=== PATIENT | male | born 1965 | race Caucasian/White ===

== ENCOUNTER 2018-05-16 12:28 | Inpatient (IN) ==
[2018-05-17] MEDS ORDERED: Acetaminophen 325 MG TABLET PO PRN (18:41)
[2018-05-17] MEDS: *HR* OxyCODONE Immed Rel 5 MG TABLET PO PRN (18:42)
[2018-05-17] MEDS ORDERED: Acetaminophen 325 MG TABLET PO SCH (20:00)
[2018-05-17] MEDS: Albuterol 2.5 MG/3 ML NEBULIZER IH SCH (22:27)
[2018-05-17] MEDS: Melatonin 3 MG TABLET PO SCH (22:27)
[2018-05-17] MEDS: *HR* Enoxaparin 40 MG/0.4 ML SYRINGE SQ SCH (22:27)
[2018-05-18] MEDS: *HR* OxyCODONE Immed Rel 5 MG TABLET PO PRN ×3 (00:48→15:30)
[2018-05-18 05:34] LABS: Basophils # 0.1 K/mcL (0.0-0.2); Basophils % 0.7 %; Eosinophils # 0.2 K/mcL (0.0-0.6); Eosinophils % 2.1 %; Hematocrit 40.3 % (37.5-50.1); Hemoglobin 13.8 g/dL (12.9-16.9); Immature Granulocytes % 0.9 % (0-4); Lymphocytes # 2.1 K/mcL (0.6-4.6); Mean Corpuscular HGB Conc 34.2 g/dL (31.6-35.5); Mean Corpuscular Hemoglobin 29.7 pg (28.0-33.3); Mean Corpuscular Volume 86.9 fL (83.0-100.0); Mean Platelet Volume 10.7 fL (9.4-12.4); Monocytes # 0.7 K/mcL (0.0-1.3); Neutrophils # 5.1 K/mcL (1.6-8.9); Platelet Count 358 K/mcL (140-400); Red Blood Count 4.64 M/mcL (4.19-5.50); Red Cell Distribution Width 13.6 % (11.5-14.5); Segmented Neutrophils % 62.3 %
[2018-05-18] MEDS: Albuterol 2.5 MG/3 ML NEBULIZER IH SCH ×2 (05:40→10:57)
[2018-05-18] MEDS: *HR* Enoxaparin 40 MG/0.4 ML SYRINGE SQ SCH (05:40)
[2018-05-18 05:55] LABS: Alanine Aminotransferase 43 Units/L (7-52); Albumin 3.4 g/dL (3.5-5.7); Albumin/Globulin Ratio 1.4 (1.1-2.2); Alkaline Phosphatase 65 Units/L (34-104); Aspartate Amino Transferase 17 Units/L (13-39); BUN/Creatinine Ratio 16 (6-26); Bilirubin,Total 0.5 mg/dL (0.3-1.0); Blood Urea Nitrogen 12 mg/dL (6-20); Calcium 8.8 mg/dL (8.6-10.3); Carbon Dioxide 27 mEq/L (23-29); Chloride 99 mEq/L (98-107); Globulin 2.5 g/dL (2.4-3.5); Glucose 90 mg/dL (70-105); Osmolality,Calculated 277 (280-300); Potassium 3.5 mEq/L (3.5-5.1); Sodium 134 mEq/L (136-145); Total Protein 5.9 g/dL (6.4-8.9); eGFR For Non-African Americans > 60 (> 60)
[2018-05-18] MEDS ORDERED: Albuterol 2.5 MG/3 ML NEBULIZER IH PRN (11:05)
--- NOTE | 2018-05-18 11:58 | Internal Med History&Physical ---
Addendum entered and electronically signed by Wolf Montilla MD 05/23/18 12:59: Upon review, I see that I neglected to mention that the patient had an umbilical hernia. This is rather large, being about 10 or 12 cm x 4 cm, mainly at the inferior aspect of the umbilicus. This is easily reducible, spontaneously. It is not noticeable unless the patient is upright. Addendum entered and electronically signed by Wolf Montilla MD 05/18/18 12:12: I have personally performed a face to face evaluation on this patient. I have reviewed and agree with the care plan. History and Exam by me shows: Patient with stroke on the or march. He was in his usual state of health and plan to go hunting for the second in a row. He could not speak, could not move his right side and was noted to have visual defects. He has improved in terms of speech, swallowing, motor strength but still has visual changes and double vision. His subarachnoid hemorrhage, as a complication of a stroke, was apparently treated with 2 coils. He was markedly hypertensive upon admission to [facility] and this was controlled with medication. He is otherwise been medically stable, after the procedures, as noted. Admits to double vision is noted and notes that his eye is weak on the right. He has full dentures, upper and lower plate. Patient has no complaint of chest discomfort, dyspnea, orthopnea, breathing problems, palpitations, nausea or vomiting, constipation or diarrhea, other changes in bowel habits, heartburn, difficulty with urination, kidney problems or kidney stones, fevers chills or sweats, rash or itching, seizures, headache or lightheadedness, heat or cold intolerance, blood problems or anemia, or other new complaints, except as mentioned above. Review of systems is otherwise negative. Examination: (Except as mentioned above): General: In no apparent distress, alert and oriented 3. Head: Atraumatic and normocephalic. Eyes: Extraocular muscles are remarkable for right esotropia, pupils equal round and reactive to light and accommodation. He occasionally demonstrates gaze divergence on the right. Sclerae anicteric. Ears: External ears are normal to inspection and hearing is grossly normal. Nose: Patent without lesion noted. Mouth: No intraoral lesions seen. Dentition is unremarkable. Neck: Supple with trachea midline. There is no thyromegaly or adenopathy and carotids are 2+ without bruit heard. Respiratory: No use of accessory muscles. Lungs are clear throughout. Normal airflow. Cardiovascular: Regular rate and rhythm without murmur appreciated. Abdomen: Bowel sounds are normal. No hepatosplenomegaly masses or tenderness. Obese and therefore difficult to palpate deeply. Extremities: No cyanosis clubbing or edema. Neurological: A and O 3. Cranial nerves II through XII are intact. No focal deficits and no abnormal movements or postures. Skin: Warm and non-diaphoretic with no lesions noted. Breasts, pelvic and rectal: Not examined. He will have therapy and assessment by physical therapy, occupational therapy, speech therapy, recreational therapy, physical medicine. We will watch his blood pressure and make sure that he has no fall, as possible. He is felt to be at fall risk and I told him this. I spoke with nursing about moving him closer to the nurses station. Apparently, patient has tried to get up and disable his bed alarm. Original Note: Date of Encounter: 05/18/18 Time of Encounter: 11:55 Assessment and Plan (1) SAH (subarachnoid hemorrhage) Current visit: Yes Status: Acute Patient was admitted to this facility for rehabilitation due to deconditioning secondary to his subarachnoid hemorrhage. Patient experienced a subarachnoid hemorrhage on 05/02/18, and was transferred to [facility] for treatment. Patient experienced a coiling of aneurysm and had a uneventful recovery. On exam patient shows no motor deficit but does show visual deficit with eyes being deconjugated and complaints of diplopia. Patient states some difficulty with ambulation due to his visual deficits. Patient had elevated blood pressure on admission to [facility], but his blood pressure has been stable since his admission at this facility. Patient denies any discomforts or shortness of breath. Patient states no prior medical issues. We will continue with physical therapy and s upportive care. (2) HTN (hypertension) Current visit: Yes Status: Acute No acute issues. Patient experienced a hypertensive emergency on day of admission for his subarachnoid hemorrhage. Patient's blood pressure is been stable since his admission to this facility. We will continue with current medications. Qualifiers: Hypertension type: essential hypertension Qualified Code(s): I10 - Essential (primary) hypertension (3) Unsteady gait Current visit: Yes Status: Acute Patient with unsteady gait secondary to his visual deficits. Patient noted to ambulate with minimal assistance and the use of a wheeled walker. We will continue with PT/OT and supportive care. Internal Medicine - H&P: HPI Chief complaint: SAH Admitted From: Home Plans for Post Hospital Care: Home History of present illness: Mr. Blanco is a 52 year old male, who was transferred from [facility] on 05/02/18, after being treated for a subarachnoid hemorrhage. Per medical records patient had a coiling of a aneurysm and showed a uneventful recovery. Patient was transferred to this facility for further rehabilitation due to deconditioning. Patient noted to have some difficulty with vision to his right thigh, but otherwise shows no notable motor deficits. He denies any current discomforts or dyspnea. Patient states he had no prior medical history and was on no home medications prior to this admission. Past Med Surg Social Fam HX - Past Medical History Medical history: hypertension Additional medical history: brain aneurysm Psychiatric history: no psych history - Past Surgical History Additional surgical history: 2018- ruptured brain aneurysm - Social History Smoking Status: Former smoker Alcohol use: none Drug use: marijuana - Family History Father Living Status: Cause of : cva Internal Medicine - H&P: Meds Acetaminophen [Tylenol] 650 mg PO Q4HR 05/17/18 [History] Albuterol Neb [Proventil Neb] 2.5 mg IH Q6HR 05/17/18 [History] Docusate [Colace] 100 mg PO BID 05/17/18 [History] Lisinopril [Zestril] 5 mg PO DAILY 05/17/18 [History] Melatonin [Melatin] 3 mg PO HS 05/17/18 [History] OxyCODONE Immed Rel [Roxicodone 5 MG] 5 mg PO Q6HR PRN 05/17/18 [History] Quetiapine Fumarate [Seroquel] 50 mg PO HS PRN 05/17/18 [History] Allergy/AdvReac Type Severity Reaction Status Date / Time No Known Allergies Allergy Verified 05/02/18 09:02 All Systems PM: A 10-system review of systems was performed and is negative for pertinent findings except as documented above in the HPI. - Constitutional Constitutional: as per HPI, no chills, no fever(s), no night sweats - EENT Eyes: as per HPI, no change in vision, no discharge, no pain, no photophobia Ears: no ear discharge, no ear pain, no tinnitus Nose, mouth and throat: as per HPI, no dysphagia, no nasal discharge, no neck pain, no sore throat - Cardiovascular Cardiovascular ROS IM: as per HPI, no chest pain, no diaphoresis, no dyspnea, no lightheadedness, no palpitations, no syncope - Respiratory Respiratory: as per HPI, no cough, no dyspnea, no wheezing, no excessive phlegm production - Gastrointestinal Gastrointestinal: as per HPI, no abdominal pain, no diarrhea, no hematemesis, no hematochezia, no melena, no nausea, no vomiting - Musculoskeletal Musculoskeletal ROS IM: no numbness, no tingling - Integumentary Integumentary IM: no rash, no unusual bruising - Neurological Neurological ROS: no confusion, no convulsions, no focal weakness, no numbness, no tingling, no tremor(s) - Hematologic/Lymphatic Hematologic/Lymphatic: no easy bruising - Constitutional Vitals: Temp Pulse Resp BP Pulse Ox 99.3 F 75 16 135/88 91 05/18/18 08:00 05/18/18 08:00 05/18/18 08:00 05/18/18 08:00 05/18/18 08:00 General appearance: Present: A&O X 3 - Head Head exam: Present: atraumatic, normocephalic - Eye Eye exam: Present: PERRL, conjuntiva pink, sclera anicteric Pupils: Present: PERRL Additional comments: Patient is with noted to be disconjugate. Patient complaints of diplopia. Denies any visual deficit to either eye. - Neck Neck exam general surgery: Present: supple, trachea midline. Absent: lymphadenopathy - Respiratory Respiratory exam: Present: CTAB. Absent: accessory muscle use, rales, rhonchi, wheezes - Cardiovascular Cardiovascular exam: Present: RRR, +S1, +S2. Absent: diastolic murmur, gallop, rubs, systolic murmur - GI/Abdominal GI/Abdominal exam: Present: normal bowel sounds, soft, no peritoneal signs. Absent: distended, tenderness - Extremities Exam Extremities exam: Present: warm, radial pulses palpable and symmetrical. Absent: calf tenderness, cyanotic, pedal edema - Neurological Exam Neurological exam: Present: CN II-XII intact, oriented X3, no focal deficits. Absent: pronater drift, facial droop, speech deficit Additional comments: No focal motor deficits noted on exam. Unsteady gait, likely due to diplopia. - Skin Skin exam: Present: dry, intact Internal Med - H&P Results - Labs CBC & Chem 7: 05/18/18 05:15 05/18/18 05:15 Labs: Short CBC 05/18/18 Range/Units 05:15 WBC 8.1 (4.3-11.1) K/mcL Hgb 13.8 (12.9-16.9) g/dL Hct 40.3 (37.5-50.1) % Plt Count 358 (140-400) K/mcL Neutrophils # 5.1 (1.6-8.9) K/mcL BMP 05/18/18 05:15 Sodium 134 L Potassium 3.5 Chloride 99 Carbon Dioxide 27 BUN 12 Creatinine 0.75 Glucose 90 Calcium 8.8 Liver Function 05/18/18 Range/Units 05:15 Total Bilirubin 0.5 (0.3-1.0) mg/dL AST 17 (13-39) Units/L ALT 43 (7-52) Units/L Alkaline Phosphatase 65 (34-104) Units/L Albumin 3.4 L (3.5-5.7) g/dL
[2018-05-18 18:29] LABS: Bilirubin,Urine Negative (Negative); Blood,Urine Moderate (Negative); Clarity,Urine Clear (Clear); Color,Urine Yellow (Yellow); Glucose,Urine (UA) Normal (Normal); Ketones,Urine Negative (Negative); Leukocyte Esterase,Urine Negative (Negative); Nitrite,Urine Negative (Negative); Protein,Urine Negative (Neg-Trace); Urobilinogen,Urine Normal (Normal)
[2018-05-18 18:49] LABS: Squamous Epithelial Cell,Urine Few per lpf (None-Few)
[2018-05-18 18:51] LABS: Bacteria,Urine Few per hpf (None-Few); WBC,Urine 0-3 per hpf (0-3)
[2018-05-18] MEDS: Melatonin 3 MG TABLET PO SCH (20:16)
[2018-05-19] MEDS: *HR* Enoxaparin 40 MG/0.4 ML SYRINGE SQ SCH (05:32)
[2018-05-19] MEDS: *HR* OxyCODONE Immed Rel 5 MG TABLET PO PRN ×2 (05:35→16:00)
--- NOTE | 2018-05-19 07:51 | Internal Med Progress Note ---
Addendum entered and electronically signed by Wolf Montilla MD 05/19/18 12:21: I have personally performed a face to face evaluation on this patient. I have r eviewed and agree with the care plan. History and Exam by me shows: As noted, the patient was originally to be on Nimotop for 3 weeks. However, this was discontinued when he was discharged from [facility]. We asked about neural ophthalmology follow-up and this will be arranged by nursing and/or his . The patient has been somewhat constipated but had a large bowel movement, last night. He is pleased with the results and feels better. The patient is pleased with his therapy and feels like he has done a lot and is advancing, well. He feels more steady on his feet and still admits to double vision but feels like this is getting better. Discussed care with other providers and/or nursing. Patient has no complaint of chest discomfort, dyspnea, orthopnea, palpitations, nausea or vomiting, constipation or diarrhea, other changes in bowel habits, difficulty with urination, rash or itching, or other new complaints, except as mentioned above. Review of systems is otherwise negative. Examination: (Except as mentioned above): General: In no apparent distress. Alert and oriented 3. Nondiaphoretic. He still has mild gaze divergence with right eye weakness. Head: Atraumatic and normocephalic. Respiratory: No use of accessory muscles. Lungs are clear throughout. Normal airflow. Cardiovascular: Regular rate and rhythm without murmur appreciated. Abdomen: Bowel sounds are normal. No hepatosplenomegaly mass or tenderness appreciated. Obese and therefore difficult to palpate deeply. Patient is examined upright in chair and this also limits exam. Extremities: No cyanosis clubbing or edema. Skin: Warm and non-diaphoretic with no new lesions noted. Original Note: Date of Encounter: 05/19/18 Time of Encounter: 07:48 - Assessment and plan (1) SAH (subarachnoid hemorrhage) Current Visit: Yes Status: Acute Assessment and plan: No acute issues. Patient denies any acute neurological deficits. Patient continues complaining of diplopia since his initial bleed. Eyes remained disconjugate gaze. No deficits noted on exam for muscle strength or sensation. We will continue with physical therapy which patient states is progressing well. Patient to continue follow-up with neurosurgery. We will evaluate if patient has follow-up with neural press smith helper. (2) HTN (hypertension) Current Visit: Yes Status: Acute Assessment and plan: Vital signs have remained stable. Patient has occasional systolic blood pressure in the 150s. Continue with current medications and monitor closely. Qualifiers: Hypertension type: essential hypertension Qualified Code(s): I10 - Essential (primary) hypertension (3) Unsteady gait Current Visit: Yes Status: Acute Assessment and plan: Patient continues to have unsteady gait, likely secondary to diplopia. We will continue to use of wheeled walker and assistance when ambulating. Patient has been progressing well with physical therapy. We will continue with current plan of care. - Time Spent With Patient less than 15 minutes - Subjective Interval history: Patient prophylaxis currently denies any discomforts or shortness of breath. Patient denies any acute neurological changes. Patient continues to complain of diplopia which he states has been unchanged since his discharge. - Constitutional Vitals: Temp Pulse Resp BP Pulse Ox 97.3 F L 76 16 159/96 97 05/18/18 19:00 05/18/18 19:00 05/18/18 19:00 05/18/18 19:00 05/18/18 19:00 General appearance: Present: A&O X 3 - Head Head exam: Present: atraumatic, normocephalic - Eye Eye exam: Present: PERRL, conjuntiva pink, sclera anicteric Pupils: Present: PERRL Additional comments: Eyes continue to be disconjugate with gaze. Patient with complaints of diplopia. No visual field loss noted on exam. - Neck Neck exam general surgery: Present: supple, trachea midline. Absent: lymphadenopathy - Respiratory Respiratory exam: Present: CTAB. Absent: accessory muscle use, rales, rhonchi, wheezes - Cardiovascular Cardiovascular exam: Present: RRR, +S1, +S2. Absent: diastolic murmur, gallop, rubs, systolic murmur - GI/Abdominal GI/Abdominal exam: Present: normal bowel sounds, soft, no peritoneal signs. Absent: distended, tenderness - Extremities Exam Extremities exam: Present: warm, radial pulses palpable and symmetrical. Absent: calf tenderness, cyanotic, pedal edema - Neurological Exam Neurological exam: Present: CN II-XII intact, oriented X3, no focal deficits. Absent: pronater drift, facial droop, speech deficit - Skin Skin exam: Present: dry, intact Internal Medicine: Result - Labs CBC & Chem 7: 05/18/18 05:15 05/18/18 05:15 Labs: Urine 05/18/18 Range/Units 18:20 Urine Color Yellow (Yellow) Urine Clarity Clear (Clear) Urine pH 6.0 (5.0-8.0) pH Units Ur Specific [place] 1.010 (1.010-1.025) Urine Protein Negative (Neg-Trace) mg/dL Urine Glucose (UA) Normal (Normal) mg/dL Consult Discharge Plan - Plan Referrals: NONE,PCP [Primary Care Provider] -
--- NOTE | 2018-05-19 09:03 | Event Note ---
Date of Encounter: 05/19/18 Time of Encounter: 09:01 Spoke with the neurosurgical nurse practitioner from the office of Dr. Galdamez, neurosurgeon who had taken care of Mr. Blanco. Confirmed that patient had his Nimotop discontinued at time of discharge from [facility]. Patient current status was discussed and he shows no signs of vasospasm during his stay at this facility. She also confirmed that patient was to be on low-dose Lovenox. Also, a request was made to have the contact the office of Dr. Galdamez to arrange a neuroophthalmology follow-up appointment. This was discussed with the patient and his nurse.
[2018-05-19] MEDS: Melatonin 3 MG TABLET PO SCH (19:57)
[2018-05-20] MEDS: *HR* OxyCODONE Immed Rel 5 MG TABLET PO PRN ×3 (03:02→22:45)
[2018-05-20] MEDS: *HR* Enoxaparin 40 MG/0.4 ML SYRINGE SQ SCH (05:35)
[2018-05-20 05:47] LABS: Hemoglobin 13.4 g/dL (12.9-16.9); Mean Corpuscular HGB Conc 33.5 g/dL (31.6-35.5); Mean Corpuscular Hemoglobin 29.7 pg (28.0-33.3); Mean Corpuscular Volume 88.7 fL (83.0-100.0); Platelet Count 390 K/mcL (140-400); Red Blood Count 4.51 M/mcL (4.19-5.50); Red Cell Distribution Width 13.5 % (11.5-14.5)
[2018-05-20 06:05] LABS: Alanine Aminotransferase 42 Units/L (7-52); Albumin 3.5 g/dL (3.5-5.7); Albumin/Globulin Ratio 1.5 (1.1-2.2); Alkaline Phosphatase 65 Units/L (34-104); Aspartate Amino Transferase 17 Units/L (13-39); BUN/Creatinine Ratio 15 (6-26); Bilirubin,Total 0.4 mg/dL (0.3-1.0); Blood Urea Nitrogen 13 mg/dL (6-20); Calcium 8.7 mg/dL (8.6-10.3); Carbon Dioxide 31 mEq/L (23-29); Chloride 102 mEq/L (98-107); Globulin 2.3 g/dL (2.4-3.5); Glucose 107 mg/dL (70-105); Osmolality,Calculated 285 (280-300); Sodium 137 mEq/L (136-145); Total Protein 5.8 g/dL (6.4-8.9); eGFR For Non-African Americans > 60 (> 60)
--- NOTE | 2018-05-20 10:25 | Internal Med Progress Note ---
Date of Encounter: 05/20/18 Time of Encounter: 10:23 - Assessment and plan (1) SAH (subarachnoid hemorrhage) Current Visit: Yes Status: Acute Assessment and plan: The patient continues to improve and participates well in therapy. However, he has a visual or general agnosia and is at fall risk, as I said upon his admission. We will continue to force his need for care, following rules, and he will be on a chair/bed a warm. We have moved him closer to the nurses station because of his risk. He seems to have insight into his agnosia and fall risk but this is an ongoing problem and will need to watch with therapies. He feels like he is proceeding well with therapy. He shows no evidence of injury, last evening. (2) HTN (hypertension) Current Visit: Yes Status: Acute Assessment and plan: This is marginally controlled. We will add clonidine as needed for elevations and may consider changing or adding additional medications, as necessary. Qualifiers: Hypertension type: essential hypertension Qualified Code(s): I10 - Essential (primary) hypertension - Subjective Interval history: Patient is without complaint. He is doing well and moving his bowels, etc. He still admits to double vision or blurred vision, at times. The nursing staff notes that patient slipped from his bed, witnessed by , without injury or without loss of consciousness, etc. This was apparently due to his non-compliance and occurred during a fire drill. He states that his "helps me wrong." He totally denies any injury. He asks about when he can go home and once go in the coming week. We discussed his instability, I briefly tried to explain to him about his visual and functional agnosia and fall risk and he accepts. Patient has no complaint of chest discomfort, dyspnea, orthopnea, palpitations, nausea or vomiting, constipation or diarrhea, other changes in bowel habits, difficulty with urination, rash or itching, or other new complaints, except as mentioned above. Review of systems is otherwise negative. I discussed management of her care with nursing staff. - Constitutional Vitals: Temp Pulse Resp BP Pulse Ox 98.4 F 76 18 168/90 97 05/20/18 07:00 05/20/18 07:00 05/20/18 07:00 05/20/18 07:00 05/19/18 19:33 Exam: Examination: (Except as mentioned above): General: In no apparent distress. Alert and oriented 3. Nondiaphoretic. Head: Atraumatic and normocephalic. Respiratory: No use of accessory muscles. Lungs are clear throughout. Normal airflow. Cardiovascular: Regular rate and rhythm without murmur appreciated. Abdomen: Bowel sounds are normal. No hepatosplenomegaly mass or tenderness appreciated. Obese and therefore difficult to palpate deeply. Patient is examined upright in chair and this also limits exam. Extremities: No cyanosis clubbing or edema. Skin: Warm and non-diaphoretic with no new lesions noted. Internal Medicine: Result - Labs CBC & Chem 7: 05/20/18 05:35 05/20/18 05:35 Labs: Short CBC 05/20/18 Range/Units 05:35 WBC 7.9 (4.3-11.1) K/mcL Hgb 13.4 (12.9-16.9) g/dL Hct 40.0 (37.5-50.1) % Plt Count 390 (140-400) K/mcL [facility] 05/20/18 05:35 Sodium 137 Potassium 4.0 Chloride 102 Carbon Dioxide 31 H BUN 13 Creatinine 0.85 Glucose 107 H Calcium 8.7 Liver Function 05/20/18 Range/Units 05:35 Total Bilirubin 0.4 (0.3-1.0) mg/dL AST 17 (13-39) Units/L ALT 42 (7-52) Units/L Alkaline Phosphatase 65 (34-104) Units/L Albumin 3.5 (3.5-5.7) g/dL Consult Discharge Plan - Plan Referrals: NONE,PCP [Primary Care Provider] -
[2018-05-20] MEDS: Melatonin 3 MG TABLET PO SCH (22:46)
[2018-05-21] MEDS: *HR* Enoxaparin 40 MG/0.4 ML SYRINGE SQ SCH (06:20)
--- NOTE | 2018-05-21 10:16 | Internal Med Progress Note ---
Addendum entered and electronically signed by Wolf Montilla MD 05/21/18 13:47: I have personally performed a face to face evaluation on this patient. I have r eviewed and agree with the care plan. History and Exam by me shows: Patient is doing well. He has no change and feels like he has had or stability, today. He is doing well and is having a pet visit in rehabilitation. He states his bowels are moving well. His lisinopril was increased slightly because of his elevated blood pressure but we will follow. Discussed care with other providers and/or nursing. Patient has no complaint of chest discomfort, dyspnea, orthopnea, palpitations, nausea or vomiting, constipation or diarrhea, other changes in bowel habits, difficulty with urination, rash or itching, or other new complaints, except as mentioned above. Review of systems is otherwise negative. Examination: (Except as mentioned above): General: In no apparent distress. Alert and oriented 3. Nondiaphoretic. Head: Atraumatic and normocephalic. Respiratory: No use of accessory muscles. Lungs are clear throughout. Normal airflow. Cardiovascular: Regular rate and rhythm without murmur appreciated. Abdomen: Bowel sounds are normal. No hepatosplenomegaly mass or tenderness appreciated. Obese and therefore difficult to palpate deeply. Patient is examined upright in chair and this also limits exam. Extremities: No cyanosis clubbing or edema. Skin: Warm and non-diaphoretic with no new lesions noted. Original Note: Date of Encounter: 05/21/18 Time of Encounter: 10:14 - Assessment and plan (1) SAH (subarachnoid hemorrhage) Current Visit: Yes Status: Acute Assessment and plan: No acute issues. Patient denies any acute neurological deficits. Patient continues complaining of diplopia since his initial bleed. Eyes remained disconjugate gaze. No deficits noted on exam for muscle strength or sensation. We will continue with physical therapy which patient states is progressing well. Patient to continue follow-up with neurosurgery. Patient reports that he has a follow-up appointment set for a neuroophthalmologist in the next few weeks. (2) HTN (hypertension) Current Visit: Yes Status: Acute Assessment and plan: Vital signs have remained stable. Patient continues to have multiple readings greater than 160. We will start when necessary clonidine for elevated blood pressure. We will increase current lisinopril to 10 mg daily. Qualifiers: Hypertension type: essential hypertension Qualified Code(s): I10 - Essential (primary) hypertension - Time Spent With Patient less than 15 minutes - Subjective Interval history: Patient prophylaxis currently denies any discomforts or shortness of breath. Patient denies any acute neurological changes. Patient continues to complain of diplopia which he states has been unchanged since his discharge. Patient states that his has made arrangements for him to follow-up with a joana roophthalmologist in the upcoming weeks. Nurse reports patient has had a recent fall out of bed, but patient denies any injuries. Patient stating wishes to go home soon. - Constitutional Vitals: Temp Pulse Resp BP Pulse Ox 98.0 F 80 16 161/117 97 05/21/18 08:00 05/21/18 08:00 05/21/18 08:00 05/21/18 08:00 05/20/18 20:00 General appearance: Present: A&O X 3, pleasant - Head Head exam: Present: atraumatic, normocephalic - Eye Eye exam: Present: PERRL, conjuntiva pink, sclera anicteric Pupils: Present: PERRL Additional comments: Disconjugate gaze. Complaints of diplopia. 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 - Neck Neck exam general surgery: Present: supple, trachea midline. Absent: lymphadenopathy - Respiratory Respiratory exam: Present: CTAB. Absent: accessory muscle use, rales, rhonchi, wheezes - Cardiovascular Cardiovascular exam: Present: RRR, +S1, +S2. Absent: diastolic murmur, gallop, rubs, systolic murmur - GI/Abdominal GI/Abdominal exam: Present: normal bowel sounds, soft, no peritoneal signs. Absent: distended, tenderness - Extremities Exam Extremities exam: Present: warm, radial pulses palpable and symmetrical. Absent: calf tenderness, cyanotic, pedal edema - Neurological Exam Neurological exam: Present: CN II-XII intact, oriented X3. Absent: pronater drift, facial droop, speech deficit Additional comments: Patient continues to show effects of third nerve palsy with disconjugate gaze and complaints of diplopia. No other focal neurological deficits noted. - Skin Skin exam: Present: dry, intact Internal Medicine: Result - Labs CBC & Chem 7: 05/20/18 05:35 05/20/18 05:35 Consult Discharge Plan - Plan Referrals: NONE,PCP [Primary Care Provider] -
[2018-05-21] MEDS: *HR* OxyCODONE Immed Rel 5 MG TABLET PO PRN ×2 (16:04→22:20)
[2018-05-21] MEDS: cloNIDine HCl 0.1 MG TABLET PO PRN (16:06)
[2018-05-21] MEDS: Melatonin 3 MG TABLET PO SCH (22:20)
[2018-05-22] MEDS: *HR* Enoxaparin 40 MG/0.4 ML SYRINGE SQ SCH (06:12)
[2018-05-22] MEDS: *HR* OxyCODONE Immed Rel 5 MG TABLET PO PRN ×2 (08:52→19:44)
--- NOTE | 2018-05-22 11:00 | Internal Med Progress Note ---
Addendum entered and electronically signed by Wolf Montilla MD 05/22/18 11:58: I have personally performed a face to face evaluation on this patient. I have r eviewed and agree with the care plan. History and Exam by me shows: Patient is without complaint. He feels like he is getting more stable with ambulation. However, therapies and nursing note impulse in this which persists. He wants to go home today. However, I told him that we will discuss with therapy staff and he would need at least a day or 2 of family education about home care before his discharge. Discuss his progress in team meeting, today. He states that he has moved his bowels and bladder is functioning well. He had some headache this morning. Nursing notes discrepancy which is 30-40 mmHg between the 2 arms. I have investigated trying to reach vascular surgery and radiology about the best evaluation that we have here. Discussed care with other providers and/or nursing. Patient has no complaint of chest discomfort, dyspnea, orthopnea, palpitations, nausea or vomiting, constipation or diarrhea, other changes in bowel habits, difficulty with urination, rash or itching, or other new complaints, except as mentioned above. Review of systems is otherwise negative. Examination: (Except as mentioned above): General: In no apparent distress. Alert and oriented 3. Nondiaphoretic. He still has gaze divergence. Head: Atraumatic and normocephalic. Respiratory: No use of accessory muscles. Lungs are clear throughout. Normal airflow. Cardiovascular: Regular rate and rhythm without murmur appreciated. Abdomen: Bowel sounds are normal. No hepatosplenomegaly mass or tenderness appreciated. Obese and therefore difficult to palpate deeply. Patient is examined upright in chair and this also limits exam. Extremities: No cyanosis clubbing or edema. Skin: Warm and non-diaphoretic with no new lesions noted. Original Note: Date of Encounter: 05/22/18 Time of Encounter: 10:58 - Assessment and plan (1) SAH (subarachnoid hemorrhage) Current Visit: Yes Status: Acute Assessment and plan: continue PT and OT. will follow progress. f/u with neurologist as scheduled. (2) HTN (hypertension) Current Visit: Yes Status: Acute Assessment and plan: controlled with current meds. lisinopril increased yesterday. monitor BP. Qualifiers: Hypertension type: essential hypertension Qualified Code(s): I10 - Es sential (primary) hypertension - Time Spent With Patient less than 15 minutes - Subjective Interval history: participating well with therapy. continues to be impulsive at times. c/o diplopia, scheduled to see neuro-opthamologist in a couple weeks. denies any new neuro deficits. maintaining appetite and hydration. bowels moving as normal. - Constitutional Vitals: Temp Pulse Resp BP Pulse Ox 97.4 F L 81 16 157/84 96 05/22/18 08:00 05/22/18 08:00 05/22/18 08:00 05/22/18 08:00 05/21/18 20:38 General appearance: Present: A&O X 3, pleasant, no acute distress, answers questions appropriately - Head Head exam: Present: atraumatic, normocephalic - Eye Eye exam: Present: PERRL, conjuntiva pink, sclera anicteric Pupils: Present: PERRL - Neck Neck exam general surgery: Present: supple, trachea midline. Absent: lymphadenopathy - Respiratory Respiratory exam: Present: CTAB. Absent: accessory muscle use, rales, rhonchi, wheezes - Cardiovascular Cardiovascular exam: Present: RRR, +S1, +S2. Absent: diastolic murmur, gallop, rubs, systolic murmur - GI/Abdominal GI/Abdominal exam: Present: normal bowel sounds, soft, no peritoneal signs. Absent: distended, tenderness - Extremities Exam Extremities exam: Present: warm, radial pulses palpable and symmetrical. Absent: calf tenderness, cyanotic, pedal edema - Neurological Exam Neurological exam: Present: CN II-XII intact, oriented X3, no focal deficits. Absent: pronater drift, facial droop, speech deficit - Skin Skin exam: Present: dry, intact Internal Medicine: Result - Labs CBC & Chem 7: 05/20/18 05:35 05/20/18 05:35 Consult Discharge Plan - Plan Referrals: NONE,PCP [Primary Care Provider] -
[2018-05-22] MEDS: Melatonin 3 MG TABLET PO SCH (19:44)
[2018-05-23] MEDS: *HR* Enoxaparin 40 MG/0.4 ML SYRINGE SQ SCH (06:15)
[2018-05-23] MEDS: *HR* OxyCODONE Immed Rel 5 MG TABLET PO PRN ×2 (08:08→20:00)
--- NOTE | 2018-05-23 11:32 | Internal Med Progress Note ---
Addendum entered and electronically signed by Wolf Montilla MD 05/23/18 12:56: I have personally performed a face to face evaluation on this patient. I have r eviewed and agree with the care plan. History and Exam by me shows: Patient is without issue. I reviewed his high blood pressure and there is discrepancy in blood pressure between arms. This included normal Dopplers waveforms of bilateral upper extremities, yesterday. His attributes this to stress but I told her that I think that this is likely not related to stress and needs to be followed with their family physician. He denies problems, feels that he is stable with walking and look forward to going home in 3 or 4 days. Discussed care with other providers and/or nursing. Patient has no complaint of chest discomfort, dyspnea, orthopnea, palpitations, nausea or vomiting, constipation or diarrhea, other changes in bowel habits, difficulty with urination, rash or itching, or other new complaints, except as mentioned above. Review of systems is otherwise negative. Examination: (Except as mentioned above): General: In no apparent distress. Alert and oriented 3. Nondiaphoretic. Head: Atraumatic and normocephalic. Respiratory: No use of accessory muscles. Lungs are clear throughout. Normal airflow. Cardiovascular: Regular rate and rhythm without murmur appreciated. Abdomen: Bowel sounds are normal. No hepatosplenomegaly mass or tenderness appreciated. Obese and therefore difficult to palpate deeply. Still with hernia, as before. Patient is examined upright in chair and this also limits exam. Extremities: No cyanosis clubbing or edema. Skin: Warm and non-diaphoretic with no new lesions noted. Original Note: Date of Encounter: 05/23/18 Time of Encounter: 11:31 - Assessment and plan (1) SAH (subarachnoid hemorrhage) Current Visit: Yes Status: Acute Assessment and plan: continue PT and OT. will follow progress. f/u with neurologist as scheduled. (2) HTN (hypertension) Current Visit: Yes Status: Acute Assessment and plan: controlled with current meds. lisinopril increased yesterday. monitor BP. Qualifiers: Hypertension type: essential hypertension Qualified Code(s): I10 - Essential (primary) hypertension - Time Spent With Patient less than 15 minutes - Subjective Interval history: participating well with therapy. ambulating with CGA in hallway. continues to be impulsive at times. c/o diplopia, scheduled to see neuro-opthamologist in a couple weeks. denies any new neuro deficits. maintaining appetite and hydration. bowels moving as normal. - Constitutional Vitals: Temp Pulse Resp BP Pulse Ox 98.1 F 70 14 157/99 96 05/23/18 05:42 05/23/18 05:42 05/23/18 05:42 05/23/18 05:42 05/23/18 05:42 General appearance: Present: A&O X 3, pleasant, no acute distress, answers questions appropriately - Head Head exam: Present: atraumatic, normocephalic - Eye Eye exam: Present: PERRL, conjuntiva pink, sclera anicteric Pupils: Present: PERRL - Neck Neck exam general surgery: Present: supple, trachea midline. Absent: lymphadenopathy - Respiratory Respiratory exam: Present: CTAB. Absent: accessory muscle use, rales, rhonchi, wheezes - Cardiovascular Cardiovascular exam: Present: RRR, +S1, +S2. Absent: diastolic murmur, gallop, rubs, systolic murmur - GI/Abdominal GI/Abdominal exam: Present: normal bowel sounds, soft, no peritoneal signs. Absent: distended, tenderness - Extremities Exam Extremities exam: Present: warm, radial pulses palpable and symmetrical. Absent: calf tenderness, cyanotic, pedal edema - Neurological Exam Neurological exam: Present: CN II-XII intact, oriented X3, no focal deficits. Absent: pronater drift, facial droop, speech deficit - Skin Skin exam: Present: dry, intact Internal Medicine: Result - Labs CBC & Chem 7: 05/20/18 05:35 05/20/18 05:35 Consult Discharge Plan - Plan Referrals: NONE,PCP [Primary Care Provider] -
[2018-05-23] MEDS: cloNIDine HCl 0.1 MG TABLET PO PRN (20:00)
[2018-05-23] MEDS: Melatonin 3 MG TABLET PO SCH (20:00)
[2018-05-24] MEDS: *HR* Enoxaparin 40 MG/0.4 ML SYRINGE SQ SCH (06:11)
[2018-05-24] MEDS: *HR* OxyCODONE Immed Rel 5 MG TABLET PO PRN ×2 (08:10→19:59)
--- NOTE | 2018-05-24 10:23 | Internal Med Progress Note ---
Addendum entered and electronically signed by Wolf Montilla MD 05/24/18 11:52: I have personally performed a face to face evaluation on this patient. I have r eviewed and agree with the care plan. History and Exam by me shows: Patient is without complaint. He is looking forward to going home on Tuesday. He notes visual discrepancy persists. He is getting used to it. Discussed care with other providers and/or nursing. Patient has no complaint of chest discomfort, dyspnea, orthopnea, palpitations, nausea or vomiting, constipation or diarrhea, other changes in bowel habits, difficulty with urination, rash or itching, or other new complaints, except as mentioned above. Review of systems is otherwise negative. Examination: (Except as mentioned above): General: In no apparent distress. Alert and oriented 3. Nondiaphoretic. Head: Atraumatic and normocephalic. Respiratory: No use of accessory muscles. Lungs are clear throughout. Normal airflow. Cardiovascular: Regular rate and rhythm without murmur appreciated. Abdomen: Bowel sounds are normal. No hepatosplenomegaly mass or tenderness appreciated. Obese and therefore difficult to palpate deeply. Patient is examined upright in chair and this also limits exam. Extremities: No cyanosis clubbing or edema. Skin: Warm and non-diaphoretic with no new lesions noted. We will continue therapies and family education for home safety. Plan discharge 05-26. Original Note: Date of Encounter: 05/24/18 Time of Encounter: 10:22 - Assessment and plan (1) SAH (subarachnoid hemorrhage) Current Visit: Yes Status: Acute Assessment and plan: continue PT and OT. will follow progress. f/u with neurologist as scheduled. (2) HTN (hypertension) Current Visit: Yes Status: Acute Assessment and plan: continues to be elevated. will monitor BP closely and consider adjusting meds.. Qualifiers: Hypertension type: essential hypertension Qualified Code(s): I10 - Essential (primary) hypertension - Subjective Interval history: participating well with therapy. ambulating with CGA in hallway. continues to be impulsive at times and moves quickly. c/o diplopia, but states it is improvi ng. scheduled to see neuro-opthamologist in a couple weeks. denies any new neuro deficits. maintaining appetite and hydration. bowels moving as normal. - Constitutional Vitals: Temp Pulse Resp BP Pulse Ox 98.0 F 74 16 153/102 97 05/24/18 06:00 05/24/18 06:00 05/24/18 06:00 05/24/18 06:00 05/24/18 06:00 General appearance: Present: A&O X 3, pleasant, no acute distress, answers questions appropriately - Head Head exam: Present: atraumatic, normocephalic - Eye Eye exam: Present: PERRL, conjuntiva pink, sclera anicteric Pupils: Present: PERRL - Neck Neck exam general surgery: Present: supple, trachea midline. Absent: lymphadenopathy - Respiratory Respiratory exam: Present: CTAB. Absent: accessory muscle use, rales, rhonchi, wheezes - Cardiovascular Cardiovascular exam: Present: RRR, +S1, +S2. Absent: diastolic murmur, gallop, rubs, systolic murmur - GI/Abdominal GI/Abdominal exam: Present: normal bowel sounds, soft, no peritoneal signs. Absent: distended, tenderness - Extremities Exam Extremities exam: Present: warm, radial pulses palpable and symmetrical. Absent: calf tenderness, cyanotic, pedal edema - Neurological Exam Neurological exam: Present: CN II-XII intact, oriented X3, no focal deficits. Absent: pronater drift, facial droop, speech deficit - Skin Skin exam: Present: dry, intact Internal Medicine: Result - Labs CBC & Chem 7: 05/20/18 05:35 05/20/18 05:35 Consult Discharge Plan - Plan Referrals: NONE,PCP [Primary Care Provider] -
[2018-05-24] MEDS: Melatonin 3 MG TABLET PO SCH (19:59)
[2018-05-25] MEDS: cloNIDine HCl 0.1 MG TABLET PO PRN (02:58)
[2018-05-25] MEDS: *HR* Enoxaparin 40 MG/0.4 ML SYRINGE SQ SCH (03:03)
[2018-05-25] MEDS: *HR* OxyCODONE Immed Rel 5 MG TABLET PO PRN ×2 (08:09→19:55)
--- NOTE | 2018-05-25 08:14 | Internal Med Progress Note ---
Addendum entered and electronically signed by Jackie Mahmood 05/26/18 10:16: I have personally performed a face to face evaluation on this patient. I have reviewed and agree with the care plan. History and Exam by me shows: his blood pressure systolic remains elevated. He is currently asymptomatic. He denies ferrer or cp. He is taking lisinopril and prn clonidine. He states he has fam hx of htn. Will change lisinopril to losartin 50 mg and norvasc 5 mg. May titrate up if needed. Continue to monitor. Original Note: Date of Encounter: 05/25/18 Time of Encounter: 08:12 - Assessment and plan (1) SAH (subarachnoid hemorrhage) Current Visit: Yes Status: Acute Assessment and plan: No acute issues. Patient denies any acute neurological deficits. Patient continues complaining of diplopia since his initial bleed, which has been improving per patient report. Eyes remained disconjugate gaze, which also appears to have improved since last exam by myself. No deficits noted on exam for muscle strength or sensation. We will continue with physical therapy which patient states is progressing well. Patient to continue follow-up with neurosurgery. Patient reports that he has a follow-up appointment set for a neuroophthalmologist in the next few weeks. Patient has planned discharge for tomorrow. (2) HTN (hypertension) Current Visit: Yes Status: Acute Assessment and plan: Vital signs have remained stable. Patient continues to have multiple readings greater than 160. Patient continues to have different blood pressures to the bilateral arms with this morning's blood pressure showing a systolic on the right in the 170s and on the left in the 150s. Recent arterial Doppler bilateral upper extremities showed no significant stenosis and was negative. Patient continues to have occasional systolic blood pressure greater than 170. We will increase current lisinopril dosing to 20 mg daily. Qualifiers: Hypertension type: essential hypertension Qualified Code(s): I10 - Essential (primary) hypertension - Time Spent With Patient less than 15 minutes - Subjective Interval history: Patient prophylaxis currently denies any discomforts or shortness of breath. Patient denies any acute neurological changes. Patient states that he feels his vision has been improving. States she continues to have some diplopia but feels that he has been getting used to it. Patient states he feels he is ready for discharge tomorrow. Nurse reports patient has been ambulating without assistance at home without difficulty. Nursing reports patient's blood pressure continues to be slightly elevated this morning with systolic BP on right at 171 and on the left at 156. Recent arterial Doppler of bilateral upper extremities was negative - Constitutional Vitals: Temp Pulse Resp BP Pulse Ox 984 F H 86 17 161/100 97 05/25/18 02:30 05/25/18 02:30 05/25/18 02:30 05/25/18 02:30 05/25/18 02:30 General appearance: Present: A&O X 3, pleasant, no acute distress, answers questions appropriately - Head Head exam: Present: atraumatic, normocephalic - Eye Eye exam: Present: PERRL, conjuntiva pink, sclera anicteric Pupils: Present: PERRL Additional comments: Eyes continue to have slight disconjugate, but appears to have improved since my last exam several days ago. No reported visual loss or visual cuts. Continued complaint of diplopia - Neck Neck exam general surgery: Present: supple, trachea midline. Absent: lymphadenopathy - Respiratory Respiratory exam: Present: CTAB. Absent: accessory muscle use, rales, rhonchi, wheezes - Cardiovascular Cardiovascular exam: Present: RRR, +S1, +S2. Absent: diastolic murmur, gallop, rubs, systolic murmur - GI/Abdominal GI/Abdominal exam: Present: normal bowel sounds, soft, no peritoneal signs. Absent: distended, tenderness - Extremities Exam Extremities exam: Present: warm, radial pulses palpable and symmetrical. Absent: calf tenderness, cyanotic, pedal edema - Neurological Exam Neurological exam: Present: CN II-XII intact, oriented X3, no focal deficits. Absent: pronater drift, facial droop, speech deficit - Skin Skin exam: Present: dry, intact Internal Medicine: Result - Labs CBC & Chem 7: 05/20/18 05:35 05/20/18 05:35 Consult Discharge Plan - Plan Referrals: NONE,PCP [Primary Care Provider] -
[2018-05-25] MEDS ORDERED: Lisinopril 20 MG TABLET PO SCH (09:00)
[2018-05-25] MEDS: Melatonin 3 MG TABLET PO SCH (19:55)
[2018-05-25] MEDS: amLODIPine 5 MG TABLET PO SCH (23:11)
[2018-05-26] MEDS: *HR* Enoxaparin 40 MG/0.4 ML SYRINGE SQ SCH (05:24)
[2018-05-26 07:05] VITALS: BP 149/97
[2018-05-26] MEDS: amLODIPine 5 MG TABLET PO SCH (08:26)
--- NOTE | 2018-05-26 10:07 | Discharge Summary ---
Date of Encounter: 05/26/18 Time of Encounter: 10:04 - Discharge Diagnosis (1) SAH (subarachnoid hemorrhage) Priority: Primary Status: Acute Comments: Patient experienced a subarachnoid hemorrhage on 05/02/2018 and was treated at [facility] with a successful coiling of the aneurysm. Patient's recovery at [facility] was uneventful and patient was transferred to this facility for further rehabilitation. Patient is residual from his subarachnoid hemorrhage was with a deconjugated gaze and complaints of diplopia. Patient was evaluated by neuro-manager solution at [facility] and has a follow-up appointment. Patient's deconjugated gaze has improved during his stay at this facility and patient states that his diplopia also has improved somewhat. Patient states he still continues to have difficulty with ambulation due to his vision and requires a wheeled walker due to his unsteady gait. No motor or sensory deficits noted on exam. Patient progressed well with physical therapy and will continue his physical therapy as an outpatient at this facility. Patient did have issues with his blood pressure being slightly elevated and his medications have been titrated. Patient is to follow-up with his neurosurgeon and neuro-op hthalmologist as scheduled. Patient has an appointment with his PCP, but due to his blood pressure we will attempt to remove that data. (2) HTN (hypertension) Priority: Secondary Status: Chronic Comments: Patient did have elevated blood pressures during his stay at this facility and his medications have been titrated. Patient most recently has been started on Norvasc and Cozaar but noted continued elevated diastolic blood pressure greater than 90. We will recommend patient see his PCP for further monitoring and managing within one week after discharge from the facility. Qualifiers: Hypertension type: essential hypertension Qualified Code(s): I10 - Essential (primary) hypertension Hospital course: Mr. Blanco is a 52 year old male, who was transferred from [facility] on 05/02/18, after being treated for a subarachnoid hemorrhage. Per medical records patient had a coiling of a aneurysm and showed a uneventful recovery. Patient was transferred to this facility for further rehabilitation due to deconditioning. Patient noted to have some difficulty with vision to his right eye which he complains of diplopia. He also has a deconjugate gaze, which has improved during his stay at this facility. Patient states that he feels he has accommodated as diplopia over the past few weeks and feels that his vision is improved. Patient states that due to his diplopia he does have unsteady gait and continues to use a wheeled walker for ambulation. Patient He denies any current discomforts or dyspnea. Patient states he had no prior medical history and was on no home medications prior to this admission. She has progressed well during his stay at this facility with his physical therapy. Patient will continue physical therapy as an outpatient at this facility. Patient has appointments scheduled for follow-up with neurosurgery and the neuro-manager solution. Patient has an appointment with his PCP, but will attempt to move up his appointment due to issues with managing his blood pressure. States this facility patient's blood pressure was slightly elevated and his medications have been titrated. Patient's most recent medication change has him on Norvasc and Cozaar, with which he will have prescriptions upon discharge. Patient is recommended to see his family physician within one week for further management and monitoring. Discharge discussed with: patient Time spent discussing smoking cessation with patient: 3 to 10 minutes - Time Spent with Patient Total time spent providing and/or coordinating discharge services: Less than 30 minutes - Discharge Medications Home Medications: Acetaminophen [Tylenol] 650 mg PO Q4HR 05/17/18 [History] Albuterol Neb [Proventil Neb] 2.5 mg IH Q6HR 05/17/18 [History] Docusate [Colace] 100 mg PO BID 05/17/18 [History] Lisinopril [Zestril] 5 mg PO DAILY 05/17/18 [History] Melatonin [Melatin] 3 mg PO HS 05/17/18 [History] OxyCODONE Immed Rel [Roxicodone 5 MG] 5 mg PO Q6HR PRN 05/17/18 [History] Quetiapine Fumarate [Seroquel] 50 mg PO HS PRN 05/17/18 [History] Allergies/Adverse Reactions: Allergy/AdvReac Type Severity Reaction Status Date / Time No Known Allergies Allergy Verified 05/02/18 09:02 Date of admission: 05/17/18 15:31 Primary care physician: PCP NONE Consults: 05/17/18 17:42 Consult to Physical Medicine/Rehab [CONS] Routine Reason for Consult: s/p ruptured aneurysm Call Completed: No 05/17/18 17:52 Consult to Occupational Therapy [CONS] Routine Comment: Evaluate, develop and implement POC Reason for Consult: s/p ruptured aneurysm Does patient have active BEDREST order?: No Is patient medically & hemodynamically stable?: Yes Patient assessed for mobility or mobilized this visit?: No Consult to Physical Therapy [CONS] Routine Comment: Evaluate, develop and implement POC Reason for Consult: s/p ruptured aneurysm Does patient have active BEDREST order?: No Is patient medically & hemodynamically stable?: Yes Patient assessed for mobility or mobilized this visit?: No Consult to Recreational Therapy [CONS] Routine Comment: Evaluate, develop and implement POC Consult to Edge Glue Machine Tender [CONS] Routine Reason for SW Consult: s/p ruptured aneurysm Consult to Speech Therapy [CONS] Routine Comment: Evaluate, develop and implement POC Reason for Consult: s/p ruptured aneurysm Call Completed: Yes Discharging clinician: Jackie Mahmood - Constitutional Vitals: Temp Pulse Resp BP Pulse Ox 98.4 F 85 16 149/97 96 05/26/18 07:03 05/26/18 07:03 05/26/18 07:03 05/26/18 07:05 05/26/18 07:03 General appearance: Present: A&O X 3, pleasant, no acute distress, answers questions appropriately - Head Head exam: Present: atraumatic, normocephalic - Eye Eye exam: Present: PERRL, conjuntiva pink, sclera anicteric Pupils: Present: PERRL Additional comments: Disconjugate gaze. Complaints of diplopia. No visual cuts noted on exam. - Neck Neck exam general surgery: Present: supple, trachea midline. Absent: lymphadenopathy - Respiratory Respiratory exam: Present: CTAB. Absent: accessory muscle use, rales, rhonchi, wheezes - Cardiovascular Cardiovascular exam: Present: RRR, +S1, +S2. Absent: diastolic murmur, gallop, rubs, systolic murmur - GI/Abdominal GI/Abdominal exam: Present: normal bowel sounds, soft, no peritoneal signs. Absent: distended, tenderness - Extremities Exam Extremities exam: Present: warm, radial pulses palpable and symmetrical. Absent: calf tenderness, cyanotic, pedal edema - Neurological Exam Neurological exam: Present: CN II-XII intact, oriented X3. Absent: pronater drift, facial droop, speech deficit Additional comments: Patient continues with disconjugate gaze. Complaints of diplopia. No visual cuts noted on exam. No focal motor deficits noted on exam. Continued unsteady gait with use of walker. - Skin Skin exam: Present: dry, intact - Patient Status Disposition: Home, Self-Care Condition: Good Functional capacity at discharge: uses cane/walker Overall status at discharge: patient is progressing back to baseline - Discharge Instructions Follow Up With: NONE,PCP [Primary Care Provider] - - Diet and Activity Activity: ambulate only with your walker, as per physical therapy Diet: low fat, low cholesterol, low salt diet
== END 2018-05-26 11:30 | disposition home or self-care (01) | DRG 57 ==
LOC: INPGRE 05-17 15:31